=== PATIENT | male | born 1985 | race Caucasian/White ===

== ENCOUNTER 2016-12-05 00:24 | Emergency (ER) ==
[2016-12-05 00:38] VITALS: BP 130/90; TEMP 97.8; BMI 28.3
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
[2016-12-05 01:27] LABS: COCAIN SCREEN,URINE NEGATIVE (NEGATIVE)
--- NOTE | 2016-12-05 02:07 | DI ---
EXAM: Lumbar spine, five views, 12/05/2016 HISTORY: Back pain COMPARISON: 02/14/2011 FINDINGS / IMPRESSION: Anatomic alignment is stable. Vertebral bodies appear intact without fractu re. The facet joints align normally. Chronic anterior wedging configuration of T11, T12 and L1. Multilevel anterior osteophyte formation No acute osseous abnormality of the lumbar spine.
== END 2016-12-05 02:05 | disposition home or self-care (01) ==
LOC: ED 00:24
DX: M54.5 Low back pain (principal); V89.2XXA Person injured in unspecified motor-vehicle accident, traffic, initial encounter; F17.210 Nicotine dependence, cigarettes, uncomplicated
CPT/HCPCS: 80306; 99283

== ENCOUNTER 2017-08-13 14:39 | Outpatient (CLI) | END 2017-08-13 14:40 | disposition home or self-care (01) | LOC: LAB 14:39 | PROVIDERS: ATTEND Internal Medicine | DX: R30.0 Dysuria (principal) | CPT/HCPCS: 36415; 80053; 81001; 85025; 87800 ==

== ENCOUNTER 2017-08-20 12:04 | Outpatient (CLI) | payer OTHER | END 2017-08-20 12:05 | disposition home or self-care (01) | LOC: LAB 12:04 | PROVIDERS: ATTEND Family Medicine | DX: E86.0 Dehydration (principal) | CPT/HCPCS: 36415; 80048; 81001 ==

== ENCOUNTER 2017-08-26 08:27 | Outpatient (CLI) | payer OTHER ==
--- NOTE | 2017-08-26 09:10 | US ---
EXAM: Ultrasound retroperitoneal complete. HISTORY: Decreased renal function. COMPARISON: None available. TECHNIQUE: Multiple maher scale and color Doppler images. FINDINGS: Right kidney measures 10.7 x 4.5 x 4.5 cm. The left kidney measures 10.2 x 5.3 x 4.6 cm. Corticomedullary differentiation in both kidneys is normal. There is no hydronephrosis. Urinary bladder is not well distended but without localized abnormality. IMPRESSION: No acute sonographic abnormality of the kidneys or bladder.
== END 2017-08-26 08:28 | disposition home or self-care (01) ==
LOC: RAD 08:27
PROVIDERS: ATTEND Family Medicine
DX: N28.9 Disorder of kidney and ureter, unspecified (principal)
CPT/HCPCS: 76770

== ENCOUNTER 2017-10-19 07:57 | Emergency (ER) ==
[2017-10-19 08:06] VITALS: BP 136/90; TEMP 98; BMI 29.5
--- NOTE | 2017-10-19 08:18 | ED.PDOC ---
General ED Provider: Dr. CASTRO GONZALEZ Chief Complaint: Back Pain Stated Complaint: Severe pain L posterior shoulder; woke him up 6:00 AM Time Seen by Physician: 08:12 Mode of Arrival: Walk-In Information Source: Patient Exam Limitations: No limitations Primary Care Provider: SHANELL OSPINA Nursing and Triage Documentation Reviewed and Agree: Yes Does patient meet sepsis criteria?: No System Inflammatory Response Syndrome: Not Applicable Sepsis Protocol: For patient's 13 years and over: Temp is 96.8 and below OR 101 and greater Pulse >90 BPM Resp >20/minute Acutely Altered Mental Status Are patient's symptoms suggestive of a new infection, such as: -Pneumonia -Skin, Soft Tissue -Endocarditis -UTI -Bone, Joint Infection -Implantable Device -Acute Abdominal Infection -Wound Infection -Meningitis -Blood Stream Catheter Infection -Unknown Musculoskeletal Complaint Exam - Shoulder Pain Complaint/Exam Mechanism of Injury: Reports: No known trauma Onset/Duration: 6:00 AM; woke him up Symptoms Are: Still present Initial Severity: Severe Current Severity: Moderate (While seated in exam room - NAD) Location: Reports: Discrete (Posterior L shoulder) Character: Reports: Sharp, Spasmodic Alleviating: Reports: None Aggravating: Reports: Movement Associated Signs and Symptoms: Denies: Swelling, Redness, Bruising, Fever, Weakness, Numbness, Tingling Related History: Reports: Dominant hand right Non-Orthopedic Risk Factors: Reports: None DVT Risk Factors: Reports: None Related Surgical History: Reports: None Differential Diagnoses: Sprain, Strain (Has trigger spot medial posterior scapular border) Review of Systems - Review Of Systems Constitutional: Reports: No symptoms Musculoskeletal: Reports: Back pain (L shoulder - scapula) Skin: Reports: No symptoms Neurological: Reports: No symptoms All Other Systems: Reviewed and Negative Past Medical History - Past Medical History Previously Healthy: Yes Endocrine: Reports: None Cardiovascular: Reports: None Respiratory: Reports: None Hematological: Reports: None Gastrointestinal: Reports: None Genitourinary: Reports: None Neuro/Psych: Reports: None Musculoskeletal: Reports: None Cancer: Reports: None - Surgical History General Surgical History: Reports: Unknown - Family History Family History: Reports: Unknown - Social History Smoking Status: Current every day smoker, Heavy tobacco smoker Hx Substance Use: Yes Alcohol Screening: Occasionally Physical Exam - Physical Exam Appearance: Well-appearing Pain Distress: Moderate (With movement of left arm/shoulder and trigger point medial aspect of scapula) Musculoskeletal: Normal strength (Except L shoulder) Skin: Warm, Dry, Normal color Neurological: Sensation intact, Motor intact Psychiatric: Affect appropriate Critical Care Note - Critical Care Note Total Time (mins): 12 Course - Course Vital Signs: Temp Pulse Resp BP Pulse Ox 10/19/17 07:57 98 F 80 20 136/90 95 Departure - Departure Time of Disposition: 08:24 Disposition: HOME SELF-CARE Discharge Problem: Spasm of muscle, back Instructions: Muscle Spasm (ED) Condition: Stable Pt referred to PMD for follow-up: Yes (Call for appointment) IPMP verified?: No (Non narcotic prescribed) Additional Instructions: Use sling, left arm for support and to relieve strain from posterior shoulder blade at site of spasm/pain. Heat may help when able over the next 24 hours. Medications as prescribed. Prescriptions: Methocarbamol [Robaxin] 1 - 2 tab PO Q6HR PRN #20 tablet PRN Reason: Spasms Prednisone 20 mg PO DAILYWM #18 tablet Tramadol HCl [Ultram] 50 mg PO Q6H #14 tablet Allergies/Adverse Reactions: Allergies dexamethasone [From Decadron] Adverse Reaction (Verified 10/19/17 08:05) DYSTONIC REACTION dexamethasone sod phosphate [From Decadron] Adverse Reaction (Verified 10/19/17 08:05) DYSTONIC REACTION morphine Adverse Reaction (Verified 10/19/17 08:05) Nausea Home Medications: Ambulatory Orders Tadalafil [Cialis] 20 mg PO PRN 05/11/15 Cholecalciferol (Vitamin D3) [Vitamin D3] 50,000 unit PO WEEKLY 10/19/17 Methocarbamol [Robaxin] 1 - 2 tab PO Q6HR PRN #20 tablet 10/19/17 Prednisone 20 mg PO DAILYWM #18 tablet 10/19/17 Suvorexant [Belsomra] 20 mg PO PRN PRN 10/19/17 Tramadol HCl [Ultram] 50 mg PO Q6H #14 tablet 10/19/17 Disposition Discussed With: Patient, Family (Patient's Mom)
== END 2017-10-19 08:49 | disposition home or self-care (01) ==
LOC: ED 07:57
DX: M62.830 Muscle spasm of back (principal); F17.210 Nicotine dependence, cigarettes, uncomplicated
CPT/HCPCS: 99282

== ENCOUNTER 2018-01-28 12:31 | Outpatient (CLI) | payer OTHER | END 2018-01-28 12:32 | disposition home or self-care (01) | LOC: RHC-LAB 12:31 | PROVIDERS: ATTEND Nurse Practitioner Family | DX: R50.9 Fever, unspecified (principal); R53.83 Other fatigue | CPT/HCPCS: 36415; 84403; 84443; 86308; 87502; 87651 ==

== ENCOUNTER 2018-07-08 08:56 | Outpatient (CLI) ==
[2018-07-08] MEDS ORDERED: SOLU-MEDROL 125 MG IM STA (09:07)
[2018-07-08 09:12] VITALS: BP 144/91; TEMP 96.7
== END 2018-07-08 08:57 | disposition home or self-care (01) ==
LOC: OPMED 08:56
PROVIDERS: ATTEND Family Medicine
DX: M54.30 Sciatica, unspecified side (principal)
CPT/HCPCS: 96372